=== PATIENT | male | born 1950 | race Caucasian/White ===

== ENCOUNTER 2024-02-26 14:41 | Emergency (ER) | payer MEDICARE, SELFPAY ==
[2024-02-26 14:49] VITALS: BP 135/70; PULSE 72; RESP 16; TEMP 36.6; O2SAT 98
--- NOTE | 2024-02-26 15:24 | ED.GENADULT ---
HPI - General Adult General Chief complaint: Unspecified Stated complaint: Medication Source: patient Mode of arrival: ambulatory Limitations: no limitations History of Present Illness HPI narrative: Patient presents requesting a prescription for scopolamine patches. He is planning on going to [place] tomorrow for a cruise. He resides in [place] half the year in states he forgot his patches back home. He has the box from his previous prescription with no patches and side. He denies any other concerns. Related Data Home Medications Medication Instructions Recorded Confirmed No Home Medications 02/26/24 02/26/24 Allergies Allergy/AdvReac Type Severity Reaction Status Date / Time No Known Allergies Allergy Verified 02/26/24 15:06 Review of Systems Review of Systems: CONSTITUTIONAL: Denies fever, chills, or sweats. EYES: Denies visual changes, redness, or discharge. ENT: Denies rhinorrhea, congestion, sore throat, or otalgia. CARDIOVASCULAR: Denies chest pain, palpitations, or edema. RESPIRATORY: Denies cough or dyspnea. GASTROINTESTINAL: Denies abdominal pain, nausea, vomiting, or diarrhea. GENITOURINARY: Denies dysuria or hematuria. SKIN: Denies rash or itching. MUSCULOSKELETAL: Denies back pain, joint pain, or myalgia. NEUROLOGIC: Denies headache, numbness, dizziness, or weakness. PSYCHIATRIC: Denies anxiety or depression. PMFSH Past Medical History Medical History No pertinent past medical history Surgical History Surgical History No pertinent past surgical history Family History Family History Mother Family history non-contributory Social History Social History Substance use: never Living arrangements: with family Gender identity (if verbalized by the patient): Male Spiritual care concerns: No Exam Narrative: GENERAL: Well-appearing, well-nourished, and in no acute distress. HEAD: Normocephalic, atraumatic. EYES: PERRLA and EOMI. ENT: Nares clear, no rhinorrhea or epistaxis. Mucous membranes moist. Oropharynx without tonsillar hypertrophy exudate or other lesions. Bilateral TMs pearly wright nonbulging NECK: Supple. No adenopathy or masses. No carotid bruits or JVD CHEST: Clear to auscultation. No respiratory distress. No wheezes rales or rhonchi HEART: Regular rate and rhythm. No murmur heard. Normal peripheral pulses. ABDOMEN: Soft, nontender, nondistended, normal active bowel sounds. EXTREMITIES: Normal range of motion. No edema. SKIN: Warm, dry, no rash. NEURO: No focal deficits. Alert and oriented x3. PSYCH: Normal mood and affect. Course Course Emergency Course: This is a 73-year-old male who presented requesting a refill on scopolamine patches. He forgot his at home and is planning to go to [place] tomorrow. Will refill medication. Follow-up with primary provider. Patient in agreement with plan of care Level of Care: Express Care Visit Vital Signs Vital signs: Vital Signs Temperature 36.6 C 02/26/24 14:49 Pulse Rate 72 02/26/24 14:49 Respiratory Rate 16 02/26/24 14:49 Blood Pressure 135/70 02/26/24 14:49 Pulse Oximetry 98 02/26/24 14:49 Oxygen Delivery Room Air 02/26/24 14:49 Temperature 36.6 C 02/26/24 14:49 Pulse Rate 72 02/26/24 14:49 Respiratory Rate 16 02/26/24 14:49 Blood Pressure 135/70 02/26/24 14:49 Pulse Oximetry 98 02/26/24 14:49 Oxygen Delivery Room Air 02/26/24 14:49 Medical Decision Making Vital Signs Vital Signs: Vital Signs Temperature 36.6 C 02/26/24 14:49 Pulse Rate 72 02/26/24 14:49 Respiratory Rate 16 02/26/24 14:49 Blood Pressure 135/70 02/26/24 14:49 Pulse Oximetry 98 02/26/24 14:49 Oxygen Delivery Room Air 02/26/24 14
== END 2024-02-26 15:10 | disposition home or self-care (01) ==
PROVIDERS: Emergency Provider Nurse Practitioner
DX: Z76.0 Encounter for issue of repeat prescription (principal)
CPT/HCPCS: 99211; G0463